=== PATIENT | male | born 1995 | race Hispanic/Latino ===

== ENCOUNTER 2018-10-19 13:16 | Outpatient (CLI) | payer OTHER ==
--- NOTE | 2018-10-19 13:40 | RAD ---
TWO VIEW CHEST: INDICATION: Screening for respiratory tuberculosis. FINDINGS: No lobar consolidation, effusion, or pneumothorax. Cardiac silhouette is normal in size. Osseous st ructures are intact. IMPRESSION: 1. No focal consolidation. 2. No radiographic evidence of active tuberculosis. POS: C
== END 2018-10-19 13:17 | disposition home or self-care (01) ==
LOC: SCSRAD 13:16
DX: Z11.1 Encounter for screening for respiratory tuberculosis (principal)
CPT/HCPCS: 71046